=== PATIENT | male | born 1945 | race Caucasian/White ===

== ENCOUNTER 2018-05-07 05:24 | Day surgery (SDC) | payer MEDICARE ==
[~2018-05-07] VITALS: Ht 185.4 cm; Wt 88.5 kg
--- NOTE | ~2018-05-07 | OP ---
PATIENT NAME: RAMOS PATINO MEDICAL RECORD: [id number] :43 LOCATION:D.OPS ADMISSION DATE: SURGEON: JJ GARCIA MD DATE OF OPERATION: 05/07/2018 PREOPERATIVE DIAGNOSES: 1. Ureteral cancer. 2. Hypertension. 3. Coronary artery disease. 4. Hyperlipidemia. POSTOPERATIVE DIAGNOSES: 1. Ureteral cancer. 2. Hypertension. 3. Coronary artery disease. 4. Hyperlipidemia. PROCEDURE: 1. Left subclavian vein port placement. 2. Fluoroscopic interpretation. SURGEON: Jj Garcia MD REPORT OF PROCEDURE: The patient's left chest was prepped and draped in sterile fashion. A needle was used to cannulate the left subclavian vein and a guidewire was advanced with ease. Fluoro was used to note that the wire was in good position in the venous system. A skin incision was made on the left superior lateral chest and a subcutaneous pouch was made over the pectoral fascia. The catheter was tunneled between this pouch and the wire exit site. The port was then sutured to the pectoral fascia using interrupted 2-0 Prolenes. The catheter was cut with a beveled tip at 26 cm. We then placed the dilator trocar device over the wire and the wire and dilator were removed. The catheter tip was advanced through the trocar and the trocar was removed. Fluoro was used to note that the catheter tip rested in good position at the right atrial superior vena caval junction. The catheter aspirated nonpulsatile dark blood and flushed easily with heparinized saline. The subcutaneous tissues were then reapproximated with interrupted 3-0 Vicryl and the skin was closed with running subcutaneous 5-0 Monocryl. COMPLICATIONS: None. CONDITION: Stable. ANESTHESIA: General endotracheal. BLOOD LOSS: Minimal. TRANSINT:[id number] Voice Confirmation ID: [id number] DOCUMENT ID: [id number] OPERATIVE REPORT [id number] SUKUMARRAMOS JJ GARCIA MD at 1714 CC: YOSEF GONZALEZ MD [id number] DICTATION DATE: 05/07/18 0844 ADMINISTRATIVE SUPPORT MANAGER: 05/07/18 0851 [facility] 05/07/18 [place] [id number]
[2018-05-07 05:44] LABS: BASOPHILS 0.4 % (0-2); EOSINOPHILS 4.8 % (0-7); HEMATOCRIT 47.2 % (42.0-54.0); HEMOGLOBIN 16.5 g/dL (13.5-17.5); IMMATURE GRANULOCYTES 0.3 % (0-5); LYMPHOCYTES 22.1 % (15-50); MCH 31.3 pg (26.0-34.0); MCV 89.4 fL (80.0-100.0); MEAN PLATELET VOLUME 10.2 fL (7.4-10.4); MONOCYTES 13.9 % (2-11); NEUTROPHILS 58.5 % (40-80); PLATELET COUNT 260 10x3/uL (130-400); RBC 5.28 10x6/uL (4.20-6.10); RDW 13.2 % (11.5-14.5); WBC 9.1 10x3/uL (4.8-10.8)
[2018-05-07 06:31] LABS: APTT 31.4 SECONDS (22.8-39.4)
[2018-05-07 06:34] LABS: INR 1.1 (0.85-1.17); PROTIME 13.8 SECONDS (11.6-15.0)
[2018-05-07] MEDS ORDERED: PRINIVIL20 MG PO (07:12)
[2018-05-07] MEDS ORDERED: ZOCOR40 MG PO (07:13)
[2018-05-07] MEDS ORDERED: BAYER CHEWABLE81 MG PO (07:13)
[2018-05-07] MEDS ORDERED: METOPROLOL TART50 MG PO (07:13)
[2018-05-07] MEDS ORDERED: NIACIN100 MG PO (07:14)
[2018-05-07 07:22] VITALS: BP 146/88; Ht 185.4 cm; Wt 88.5 kg
[2018-05-07] MEDS ORDERED: NORCO 10-325 TA1 TAB PO (08:41)
== END 2018-05-07 10:25 | disposition home or self-care (01) ==
LOC: D.OPS 05:24 → D.PAN 08:00 → D.OPS 09:45
PROVIDERS: Anesthesiology
DX: C66.9 Malignant neoplasm of unspecified ureter (principal); I10 Essential (primary) hypertension

== ENCOUNTER → 2018-05-26 11:24 | Outpatient (CLI) | payer MEDICARE ==
[2018-05-07 07:22] VITALS: BMI 25.7
[~2018-05-26 11:24] MED LIST: BAYER CHEWABLE81 MG PO; METOPROLOL TART50 MG PO; NIACIN100 MG PO; NORCO 10-325 TA1 TAB PO; PRINIVIL20 MG PO; ZOCOR40 MG PO
[2018-05-26 12:13] LABS: ALBUMIN 3.5 g/dL (3.4-5.0); ANION GAP 10.9 mmol/L (8-16); BILIRUBIN - TOTAL 0.79 mg/dL (0.2-1.3); CALCIUM 8.6 mg/dL (8.5-10.1); CARBON DIOXIDE 30.4 mmol/L (21.0-32.0); CREATININE - SERUM 1.3 mg/dL (0.6-1.3); POTASSIUM - SERUM 4.3 mmol/L (3.5-5.1); PROTEIN - SERUM 6.7 g/dL (6.4-8.2)
== END | disposition home or self-care (01) ==
LOC: D.LABREF 11:24
PROVIDERS: Internal Medicine Hematology & Oncology
DX: C67.6 Malignant neoplasm of ureteric orifice (principal); R31.0 Gross hematuria